=== PATIENT | male | born 1995 | race American Indian/Alaskan Native ===

== ENCOUNTER 2017-11-29 16:55 | Outpatient (CLI) | payer BC | END 2017-11-29 22:23 | disposition home or self-care (01) | LOC: RAD 16:55 | DX: M25.562 Pain in left knee (principal) ==

== ENCOUNTER 2022-05-09 09:18 | Outpatient (CLI) | payer BC | END 2022-05-09 19:54 | disposition home or self-care (01) | LOC: RAD 09:18 | PROVIDERS: ATTEND Internal Medicine | DX: M79.642 Pain in left hand (principal); M25.532 Pain in left wrist ==